=== PATIENT | female | born 1940 | race Caucasian/White ===

== ENCOUNTER → 2017-03-20 | Outpatient (CLI) | payer MEDICARE ==
--- NOTE | ~2017-03-20 | MY11 ---
[facility] RADIOLOGY TEXT RESULTS PATIENT: HAYLEE GEIGER LOCATION: [facility] : 44 UNIT #: [id number] AGE: [address]: KAREN GRIFFITH APRN SEX: F ORDER DR: [id number] [address] [address] [id number] O MR#: [id number] Acc #: [id number] NAME: HAYLEE GEIGER. : 1940 SEX: F STUDY DATE/TIME: 03/20/2017 13:31 UNIT: [facility] ROOM: STUDY DESCRIPTION: MY Mammogram Screening [facility] Ordering Physician: Karen Lyons M.D. MEDICAL IMAGING REPORT This report is preliminary unless electronic signature is present. EXAM Digital screening mammogram 03/20/2017 HISTORY 76-year year old woman, positive family history, mother age 60. Previous benign left breast biopsy. Annual screening. COMPARISON STUDIES Mammograms date to 07/25/2011 with most recent 01/01/2016. FINDINGS Digital imaging of each breast was completed utilizing screening protocol. Review includes FDA-approved CAD device. Breast parenchyma is predominantly fatty replaced. Grouped benign calcifications in the right breast are stable. I see no breast mass. There are no suspicious microcalcifications and no architectural deformity. IMPRESSION Benign mammogram. Annual screening recommended. BIRADS: 2 Benign Finding. Patients over the age of 40 are entered into a reminder system with target due date for the next mammogram. A result letter will also be sent to the patient. Dictated by... Bello Cooper M.D. THIS IS AN ELECTRONICALLY VERIFIED REPORT [facility] RADIOLOGY TEXT RESULTS PATIENT: HAYLEE GEIGER LOCATION: [facility] : 44 UNIT #: [id number] AGE: [address]: KAREN GRIFFITH APRN SEX: F ORDER DR: Bello Cooper M.D. at 03/21/2017 3:01 PM NADIA/fahad TD: 03/20/2017 19:27 JOB #: [id number] MEDICAL IMAGING REPORT Page 1 of 1
== END | disposition home or self-care (01) ==
LOC: CWCC 03-19 14:30 → SMAM 12:15
DX: Z12.31 Encounter for screening mammogram for malignant neoplasm of breast (principal); Z91.89 Other specified personal risk factors, not elsewhere classified; Z80.3 Family history of malignant neoplasm of breast
CPT/HCPCS: G0202